=== PATIENT | male | born 1980 | race Caucasian/White ===

== ENCOUNTER 2016-05-24 19:53 | Emergency (ER) | payer OTHER ==
[~2016-05-24] VITALS: Ht 172.7 cm; Wt 65.8 kg
[2016-05-24 19:58] VITALS: BP 109/76
--- NOTE | 2016-05-24 20:13 | ED EAR COMPLAINT ---
History of Present Illness General Chief Complaint: Ear Complaints Stated Complaint: LEFT EAR PAIN AND SWELLING Source: patient, old records Exam Limitations: no limitations Vital Signs & Intake/Output Vital Signs & Intake/Output Vital Signs Date Time Temp Pulse Resp B/P Pulse O2 O2 Flow FiO2 Ox Delivery Rate 05/24 1957 97.1 86 18 109/76 99 Room Air ED Intake and Output 05/25 0000 05/24 1200 Intake Total 0 Output Total Balance 0 Intake, Oral 0 Patient 145 lb Weight Allergies Coded Allergies: No Known Allergies (05/24/16) Reconcile Medications Cephalexin (Keflex) 500 MG CAPSULE 1 CAP PO TID cellulitis Sulfamethoxazole/Trimethoprim (Bactrim Ds Tablet) 800 MG-160 MG TABLET 1 TAB PO BID cellulitis Triage Note: PT STATES THAT HE WAS TRIMMING HIS MORAN A FEW DAYS AGO AND THAT HE ACCIDENTLY CUT HIS L EAR, NOW HAS REDNESS AND SWELLING FOR THE PAST 2 DAYS Triage Nurses Notes Reviewed? yes Onset: Gradual Duration: day(s): (4), constant Timing: recent history Injury Environment: home Severity: moderate Severity Numbers: 5 No Modifying Factors: none Associated Symptoms: denies HPI: 35-year-old male with no medical history presents to emergency room after he states he accidentally cut his left ear with scissors while trimming his Moran 1 week ago. He states that initially he was okay however over the past few days she's had progressively worsening redness warmth and swelling to the left ear. He denies any fevers chills there's been no discharge, no tinnitus or hearing loss. He denies sore throat rhinorrhea cough. He is not taken anything for his symptoms no history of similar episodes in the past. No modifying factors or associated symptoms otherwise. (ALVIN MAURO) Past History Travel History Traveled to [place] past 21 day No Medical History Any Pertinent Medical History? 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 No (ALVIN MAURO) Review of Systems Review of Systems Constitutional: Reports: see HPI. All Other Systems: Reviewed and Negative Comments Review of systems: See HPI, All other systems negative. Constitutional, no chills no fever, no malaise HEENT: no sore throat no congestion Cardiovascular: No chest pain , no palpitation Skin, see hpi Respiratory: No dyspnea no cough no sputum GI: No nausea no vomiting, no diarrhea, : No dysuria No hematuria, Muscle skeletal: No joint pain, no joint swelling, no back pain, no neck pain, Neurologic: No numbness no headache Psych: No stress Heme/endocrine: No bruising no bleeding Immunology: No lymphadenopathy (ALVIN MAURO) Physical Exam Physical Exam General Appearance: well developed/nourished, no apparent distress, alert, awake Ears: Left: erythema (tm). Comments: Well-developed well-nourished patient in no apparent distress. Head/Face: Atraumatic, no maxillary/frontal sinus tenderness, no facial swelling no mastoid tenderness or erythema to the scalp scalp is nontender Eyes: PERRL, EOMI, no conjunctival injection. No nystagmus Ear: Left External auditory canal is erythematous swollen mildly tender to palpation, no induration or fluctuance, bilateral Tympanic membranes clear, the right ear is within normal limits no erythema, no FB. Nose: atraumatic.Normal inspection: No bleeding, no septal hematoma Throat: Moist mucous membranes.Pharynx normal. No pharyngeal erythema/exudate seen. No stridor/drooling or assymetry. No swelling or edema. Neck: Supple, no lymphadenopathy, FROM Back: FROM, Nontender Cardiovascular: Regular rate and rhythms no murmurs rubs or gallops, Respiratory: Chest nontender.There were no bony deformities, no asymmetry. No respiratory distress. Patient speaking in full complete sentences. Breath sounds clear to auscultation bilaterally: NO W/R/R Extremities: full range of motion Neuro: Alert and oriented x3 Skin: Warm & dry;No appreciable rash on exposed skin Psych: Mood affect normal, normal memory normal judgment. (ALVIN MAURO) Progress Differential Diagnoses I considered the following diagnoses in my evaluation of the patient: Cellulitis mastoiditis otitis externa otitis media, cauliflower ear, Malignant otitis Plan of Care: rx for keflex provided, advised closed follow up with pmd or return to er in 72 hrs, return at anytime sooner with any concerns. i answered their questions they feel comfortable with plan Initial ED EKG: none (ALVIN MAURO) Departure Departure Time of Disposition: 2018 Disposition: HOME OR SELF CARE Condition: Stable Clinical Impression Primary Impression: Cellulitis Referrals: LYDIA SAL,WILFREDO Bartlett (PCP/Family) Additional Instructions: keflex and bactrim as directed, warm compresses as needed. follow up with your pmd this week for wound check or return with any concerns at anytime sooner. Departure Forms: Customer Survey General Discharge Information Prescriptions: Current Visit Scripts Cephalexin (Keflex) 1 CAP PO TID #21 CAP Sulfamethoxazole/Trimethoprim (Bactrim Ds Tablet) 1 TAB PO BID #14 TAB (ALVIN MAURO) PA/SAP BW BI DEVELOPER Co-Sign Statement Statement: ED Attending supervision documentation- [] I saw and evaluated the patient. I have also reviewed all the pertinent lab results and diagnostic results. I agree with the findings and the plan of care as documented in the PA's/SAP BW BI DEVELOPER's documentation. [x] I have reviewed the ED Record and agree with the PA's/SAP BW BI DEVELOPER's documentation. [] Additions or exceptions (if any) to the PAs/SAP BW BI DEVELOPER's note and plan are summarized below: [] (MERE SAL,KYRIE Walker)
[2016-05-24] MEDS ORDERED: BACTRIM DS TAB1 EACH PO (20:21)
[2016-05-24] MEDS ORDERED: KEFLEX500 M1 PO (20:21)
== END 2016-05-24 20:24 ==
LOC: ERH 19:53
DX: H60.12 Cellulitis of left external ear (principal)